=== PATIENT | female | born 1990 | race Caucasian/White ===

== ENCOUNTER 2021-07-23 15:17 | Emergency (ER) | payer BC, SELFPAY ==
--- NOTE | 2021-07-23 16:09 | HMH.EDUTC ---
[facility] [place] Disposition Clinical Impression: Dog bite Qualifiers: Encounter type: initial encounter Qualified Code(s): W54.0XXA - Bitten by dog, initial encounter Disposition: Home, Self-Care Condition on Discharge: Good Instructions: DI for Dog Bite Additional Instructions: Keep the wounds clean and dry. Follow up with your regular doctor. Take the antibiotics as directed and apply the topical antibiotics as directed. Make sure you stay in contact with the health department regarding the health of the dog. Watch the puncture wounds for signs of worsening infection, such as worsening redness, drainage, swelling, etc. GO TO THE ER FOR ANY WORSENING SYMPTOMS Follow up with your primary care physician in 3 days to have the wound rechecked. Prescriptions: Ibuprofen [Ibuprofen 600mg Tablet] 600 mg PO Q6HP PRN #30 tab PRN Reason: Mild Pain Transmission Status: Received by [place] [id number] Amoxicillin/Potassium Clav [Amox-Clav 875-125 mg Tablet] 1 tab PO BID #20 tab Transmission Status: Received by [id number] Mupirocin [Bactroban 2% Ointment 22gm tube] 1 applicatio TP TID 7 Days #1 gm Transmission Status: Received by [id number] Referrals: Provider,Referral, MD [Primary Care Provider] - Time of Disposition: 16:48 Medical Decision Making - Medical Records Medical records reviewed: No: I reviewed the patient's medical records. - Billy Inquiry Pt receiving controlled substance: No Vital Signs: 07/23/21 16:14 07/23/21 16:53 Temperature 98.2 F 98.2 F Temperature Source Oral Pulse Rate 92 H Pulse Rate [Left] 92 H Respiratory Rate 16 16 Blood Pressure 136/92 H Blood Pressure [Right Arm] 136/92 H Blood Pressure Mean [Right Arm] 106 02 Sat by Pulse Oximetry 100 Orders (Tests/Meds): ED MEDICATIONS Discontinued Medications Generic Name Dose Route Start Last Admin Trade Name Freq PRN Reason Stop Dose Admin Ceftriaxone Sodium 1 gm 07/23/21 16:18 07/23/21 16:31 Ceftriaxone 1gm Vial IM 07/23/21 16:19 1 gm ONCE ONE Administration Lidocaine HCl 0 ml 07/23/21 16:18 07/23/21 16:30 Lidocaine 1% 5ml Pf Vial IM 07/23/21 16:19 2 ml ONCE ONE Administration Tetanus/Reduced Diphtheria/Acell Pertussis 0.5 ml 07/23/21 16:18 07/23/21 16:31 Tet/Diphth/Pert-Adult 0.5ml Syringe IM 07/23/21 16:19 0.5 ml .ONCE ONE Administration Medical Decision Narrative: She refused an x-ray to r/u broken dog teeth or other foreign bodies [facility] [place] HPI - General Stated complaint: AO07/21/21 Dog bite Right Thigh Time Seen by Provider: 07/23/21 16:09 - History of Present Illness Provider Complaint: She states that she was bit by a dog 2 days ago on her right upper thigh. She is unsure what type of dog bit her or whose dog it was. She denies other injury. Her tetanus immunization is not up to date. - Related Data Previous Rx's Medication Instructions Recorded Amoxicillin/Potassium Clav 1 tab PO BID #20 tab 07/23/21 [Amox-Clav 875-125 mg Tablet] Ibuprofen [Ibuprofen 600mg 600 mg PO Q6HP PRN #30 tab 07/23/21 Tablet] Mupirocin [Bactroban 2% Ointment 1 applicatio TP TID 7 Days #1 gm 07/23/21 22gm tube] Allergies Allergy/AdvReac Type Severity Reaction Status Date / Time No Known Allergies Allergy Verified 07/23/21 16:17 [facility] History - Hepatitis A Screen Attestation statement:: This patient has been screened for Hepatitis A risk factors. I have reviewed the patient's past medical history: Yes ROS Obtained: Yes All systems reviewed & no additional complaints - Constitutional Constitutional: Denies chills, Denies fever(s) - Musculoskeletal Musculoskeletal: Denies joint pain - Integumentary/Breasts Skin/Breast: Reports as per HPI - Neurologic Neurologic: Denies tingling/numbness/burning sensations Physical Exam - General General appearance: alert, in no apparent distress - Head Head e
[2021-07-23 16:14] VITALS: BP 136/92; PULSE 92; RESP 16; TEMP 36.8; O2SAT 100; BMI 18.0
[2021-07-23 16:53] VITALS: BP 136/92; PULSE 92; RESP 16; TEMP 36.8
== END 2021-07-23 16:53 | disposition home or self-care (01) ==
PROVIDERS: Emergency Provider Nurse Practitioner
DX: S71.151A Open bite, right thigh, initial encounter (principal); W54.0XXA Bitten by dog, initial encounter
CPT/HCPCS: 90471; 90715; 96372; 99213; G0463; J0696